=== PATIENT | female | born 1995 | race African-American/Black ===

== ENCOUNTER 2022-04-25 14:37 | Emergency (ER) | payer MEDICAID ==
[~2022-04-25] VITALS: Ht 157.5 cm; Wt 53.0 kg
[2022-04-25] MEDS ORDERED: FLUORESCEIN SODIUM 1MG/STRIP BOTHEYE ONE (15:15)
[2022-04-25] MEDS ORDERED: FLUORESCEIN SODIUM 1MG/STRIP LEFTEYE ONE (15:30)
[2022-04-25] MEDS ORDERED: TETRACAINE 0.5% OPHTH DROPS 4ML LEFTEYE ONE (15:30)
[2022-04-25] MEDS ORDERED: ACETAMINOPHEN 325MG TABLET PO ONE (16:00)
[2022-04-25] MEDS ORDERED: IBUPROFEN 400MG TABLET PO ONE (16:00)
[2022-04-25 16:25] VITALS: BP 130/93
[2022-04-25] MEDS ORDERED: OFLO5DRO3 OP (16:38)
[2022-04-26] MEDS ORDERED: CYCL2DRO EACHEYE (22:27)
[2022-04-26] MEDS ORDERED: IBUP-2029 MT (22:27)
== END 2022-04-25 16:51 | disposition home or self-care (01) ==
LOC: ER 14:37
DX: S05.92XA Unspecified injury of left eye and orbit, initial encounter (principal); Y04.0XXA Assault by unarmed brawl or fight, initial encounter; Y93.89 Activity, other specified; Y92.89 Other specified places as the place of occurrence of the external cause; Y99.8 Other external cause status
CPT/HCPCS: 99283

== ENCOUNTER 2022-04-26 17:56 | Emergency (ER) | payer MEDICAID, OTHER ==
[~2022-04-26] VITALS: Ht 157.5 cm; Wt 67.0 kg
[~2022-04-26 17:56] MED LIST: OFLO5DRO3 OP
[2022-04-26] MEDS ORDERED: IBUPROFEN 600MG TABLET PO ONE (19:45)
[2022-04-26] MEDS ORDERED: IBUP-2029 MT (22:27)
[2022-04-26] MEDS ORDERED: CYCL2DRO EACHEYE (22:27)
[2022-04-26] MEDS ORDERED: IBUPROFEN 600MG TABLET PO NR (22:30)
[2022-04-26] MEDS ORDERED: TETRACAINE 0.5% OPHTH DROPS 4ML LEFTEYE ONE (22:30)
[2022-04-26 22:36] VITALS: BP 124/78
== END 2022-04-26 22:30 | disposition home or self-care (01) ==
LOC: ER 17:56
DX: S09.8XXA Other specified injuries of head, initial encounter (principal); T14.90XA Injury, unspecified, initial encounter; Y08.89XA Assault by other specified means, initial encounter; Y93.89 Activity, other specified; Y92.89 Other specified places as the place of occurrence of the external cause; Y99.8 Other external cause status; Z79.899 Other long term (current) drug therapy
CPT/HCPCS: 70486; 81025; 99284